=== PATIENT | female | born 2000 | race Caucasian/White ===

== ENCOUNTER 2018-01-23 19:44 | Emergency (ER) | payer OTHER ==
[~2018-01-23] VITALS: Ht 154.9 cm; Wt 52.6 kg
[2018-01-23 20:57] LABS: BILIRUBIN,URINE NEGATIVE (NEGATIVE); CLARITY,URINE CLEAR; COLOR,URINE YELLOW; GLUCOSE, URINE (UA) NEGATIVE (NEGATIVE); KETONES,URINE NEGATIVE (NEGATIVE); LEUKOCYTE ESTERASE ,URINE 3+ (NEGATIVE); NITRITE,URINE NEGATIVE (NEGATIVE); PH,URINE 6 (5-9); PROTEIN,URINE 1+ (NEGATIVE); UROBILINOGEN,URINE NORMAL (NORMAL)
[2018-01-23 21:05] LABS: BACTERIA,URINE FEW /HPF
[2018-01-23] MEDS ORDERED: AZITHROMYCIN 250 MG TAB (ZITHROMAX) PO STA (21:26)
[2018-01-23] MEDS ORDERED: KETOROLAC 60 MG/2 ML VIAL IM STA (21:26)
[2018-01-23] MEDS ORDERED: cefTRIAXone 1 GM (ROCEPHIN) VIAL IM ONE (21:30)
[2018-01-23] MEDS ORDERED: LIDOCAINE 1% INJ 20 ML 20 ML VIAL ONE (21:30)
[2018-01-23] MEDS ORDERED: LIDOCAINE 1% INJ 50 ML (XYLOCAINE) VIAL IJ ONE (21:30)
[2018-01-23] MEDS ORDERED: NITR-65 PO (21:33)
[2018-01-23] MEDS ORDERED: METR500T PO (21:33)
--- NOTE | 2018-01-23 21:33 | ED GU-Female ---
General Chief Complaint: -Female Stated Complaint: ABD PAIN Nursing Triage Note: PATIENT STATES THAT SHE HAS BEEN HAVING BLOODY DISCHARGE X4 DAYS. SHE HAS AN IUD AND DOES NOT USUALLY HAVE A PERIOD WITH IT. SHE ALSO HAS SEVERE ABDOMINAL CRAMPING. Source: patient Exam Limitations: no limitations History of Present Illness Date Seen by Provider: January 23, 2018 Time Seen by Provider: 20:47 Initial Comments PT C/O "REALLY BAD ABDOMINAL PAIN" X 4 DAYS--LOWER ABDOMEN/PELVIC AREA ALSO C/O BLOODY VAGINAL DISCHARGE X 4 DAYS NO NAUSEA/VOMITING NO FEVER NO URINARY SYMPTOMS NO BACK PAIN NO HISTORY OF SIMILAR HAS HAD IUD IN PLACE FOR 2 YEARS AND HAS NOT HAD A PERIOD IN OVER A YEAR PT HAS NOT TAKEN ANYTHING FOR PAIN AT ANY TIME SYMPTOMS ARE NO DIFFERENT TODAY HAS NOT SOUGHT CARE UNTIL TODAY [facility] ST[facility]ENT Allergies and Home Medications Allergies Coded Allergies: No Known Drug Allergies (Unverified , 01/23/18) Home Medications Metronidazole 500 Mg Tablet, 500 MG PO QID Prescribed by: SAILAJA CABRALES on 01/23/182132 Nitrofurantoin Monohyd/M-Cryst 100 Mg Capsule, 100 MG PO BID Prescribed by: SAILAJA CABRALES on 01/23/182132 Patient Home Medication List Home Medication List Reviewed: Yes Review of Systems Constitutional: no symptoms reported Respiratory: no symptoms reported Cardiovascular: no symptoms reported Gastrointestinal: see HPI, abdominal pain; No diarrhea, No nausea, No vomiting Genitourinary: see HPI, discharge; denies dysuria, denies flank pain Musculoskeletal: no symptoms reported Skin: no symptoms reported Psychiatric/Neurological: No Symptoms Reported Endocrine: No Symptoms Reported Hematologic/Lymphatic: No Symptoms Reported Past Dlunhbm-Grtbko-Aimmiv Hx Patient Social History Alcohol Use: Rarely Uses Recreational Drug Use: Yes Drug of Choice: MARIJUANA Smoking Status: Former Smoker Type Used: Cigarettes 2nd Hand Smoke Exposure: Yes Recent Foreign Travel: No Contact w/Someone Who Travel: No Recent Infectious Disease Expo: No Recent Hopitalizations: No Ebola Symptoms: Denies Symptoms Listed Physical Abuse: No Sexual Abuse: No Seasonal Allergies Seasonal Allergies: No Past Medical History Surgeries: No Respiratory: No Cardiac: No Neurological: No : No Reproductive Disorders: No 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 officer II-XII nml as tested, no motor/sensory deficits, alert, normal mood/affect, oriented x 3 Skin: normal color, warm/dry Progress/Results/Core Measures Suspected Sepsis SIRS Temperature:97.3 Pulse: Respiratory Rate: Blood Pressure / Mean: Results/Orders Lab Results Laboratory Tests Test 01/23/18 20:50 01/23/18 21:20 Range/Units Urine Color YELLOW Urine Clarity CLEAR Urine pH 6 5-9 Urine Specific [place] 1.020 1.016-1.022 Urine Protein 1+ H NEGATIVE Urine Glucose (UA) NEGATIVE NEGATIVE Urine Ketones NEGATIVE NEGATIVE Urine Nitrite NEGATIVE NEGATIVE Urine Bilirubin NEGATIVE NEGATIVE Urine Urobilinogen NORMAL NORMAL MG/DL Urine Leukocyte Esterase 3+ H NEGATIVE Urine RBC (Auto) 4+ H NEGATIVE Urine RBC 10-25 H /HPF Urine WBC 10-25 H /HPF Urine Squamous Epithelial Cells 5-10 /HPF Urine Crystals NONE /LPF Urine Bacteria FEW H /HPF Urine Casts NONE /LPF Urine Mucus NEGATIVE /LPF Urine Culture Indicated YES My Orders Orders - SAILAJA CABRALES DO Urine Bedside (01/23/18 20:47) Ua Culture If Indicated (01/23/18 20:47) Urine Culture (01/23/18 20:50) Ketorolac Injection (Toradol Injection) (01/23/18 21:26) Ceftriaxone Injection (Rocephin Injectio (01/23/18 21:30) Azithromycin Tablet (Zithromax Tablet) (01/23/18 21:26) Lidocaine 1% Inj 50 Ml (Xylocaine 1% Inj (01/23/18 21:30) Neisseria Gonorrhea Dna (01/23/18 21:26) Chlam Dna Probe (01/23/18 21:26) Genital Culture (01/23/18 21:26) Wet Prep (01/23/18 21:26) Virginie Prep (01/23/18 21:26) Lidocaine 1% Inj 20 Ml (Xylocaine 1% Inj (01/23/18 21:30) Medications Given in ED Current Medications Medications Dose Ordered Sig/Dae Route Start Time Stop Time Status Last Admin Dose Admin Ceftriaxone Sodium 1,000 mg ONCE ONCE IM 01/23/18 21:30 01/23/18 21:31 DC 01/23/18 21:45 1,000 MG Lidocaine HCl 20 ml STK-MED ONCE .ROUTE 01/23/18 21:30 01/23/18 21:36 DC 01/23/18 21:46 20 ML Vital Signs/I&O 01/23/18 01/23/18 20:29 21:49 Temp 97.3 97.3 Pulse 71 71 Resp 18 18 B/P (MAP) 110/67 Pulse Ox 99 O2 Delivery Room Air Room Air Capillary Refill : Point of Care Testing Urine -Bedside: Negative Departure Impression Primary Impression: PID (acute pelvic inflammatory disease) Additional Impression: UTI (urinary tract infection) Disposition: 01 HOME, SELF-CARE Condition: Stable Departure-Patient Inst. Referrals: NO,LOCAL PHYSICIAN (PCP) Primary Care Physician REHAN GOLDMAN MD Patient Instructions: Urinary Tract Infection, Adult (DC), Pelvic Inflammatory Disease (DC) Add. Discharge Instructions: LOTS OF CLEAR LIQUIDS TYLENOL 1 GRAM/ MOTRIN 800 MG 4 TIMES A DAY NEEDED FOR PAIN OR FEVER NOTHING IN VAGINA--NO TAMPONS, DOUCHING OR INTERCOURSE--UNTIL YOU ARE RECHECKED AND CLEARED BY FOLLOW UP WITH [facility] CL[facility] IN 3-4 DAYS FOR FURTHER CARE All discharge instructions reviewed with patient and/or family. Voiced understanding. Scripts Metronidazole (Flagyl) 500 Mg Tablet 500 MG PO QID for FOR INFECTION, #40 TAB Prov: SAILAJA CABRALES DO 01/23/18 Nitrofurantoin Monohyd/M-Cryst (Macrobid 100 mg Capsule) 100 Mg Capsule 100 MG PO BID, #20 CAP Prov: SAILAJA CABRALES DO 01/23/18 SAILAJA CABRALES DO January 23, 2018 21:33
== END 2018-01-23 21:52 | disposition home or self-care (01) ==
LOC: ER 19:47
DX: N73.9 Female pelvic inflammatory disease, unspecified (principal); N39.0 Urinary tract infection, site not specified; F90.9 Attention-deficit hyperactivity disorder, unspecified type; F12.10 Cannabis abuse, uncomplicated; F17.210 Nicotine dependence, cigarettes, uncomplicated; Z97.5 Presence of (intrauterine) contraceptive device
CPT/HCPCS: 36415; 81000; 84703; 87070; 87088; 87210; 87220; 87491; 87591; 96372; 99284